=== PATIENT | male | born 1980 | race Caucasian/White ===

== ENCOUNTER 2021-05-07 14:15 | Emergency (ER) | payer MEDICAID ==
[~2021-05-07] VITALS: Ht 188 cm; Wt 97.5 kg
[2021-05-07 14:23] VITALS: BP 156/101
--- NOTE | 2021-05-07 14:54 | NUR ---
xray at bedside
--- NOTE | 2021-05-07 15:00 | NUR ---
DR ROY EXAMINING PT
[2021-05-07] MEDS ORDERED: LIDOCAINE 2% 1000 MG/50 ML VIAL INJ ONE ×2 (15:16→15:20)
[2021-05-07] MEDS ORDERED: KETOROLAC 30 MG/ML VIAL IM ONE (15:20)
--- NOTE | 2021-05-07 15:46 | NUR ---
PT BIB [facility] [facility] C/O LEFT LEG ABSCESS AND RIGHT SHOULDER PAIN. PENDING DC FOR PREBOOK.
[2021-05-07] MEDS ORDERED: CEPH-588 PO (15:48)
[2021-05-07] MEDS ORDERED: SULF-59 PO (15:48)
[2021-05-07] MEDS ORDERED: BACTO TP (15:48)
[2021-05-07 16:41] VITALS: BP 128/80
--- NOTE | 2021-05-07 16:42 | NUR ---
Patient discharged with v/s stable. Written and verbal after care instructions given and explained. Patient verbalized understanding. Police with in custody. All questions addressed prior to discharge. Advised to follow up with PMD.
== END 2021-05-07 16:42 ==
LOC: MED 14:15
DX: S43.081A Other subluxation of right shoulder joint, initial encounter (principal); X58.XXXA Exposure to other specified factors, initial encounter; Y93.89 Activity, other specified; Y92.89 Other specified places as the place of occurrence of the external cause; Y99.8 Other external cause status
CPT/HCPCS: 23650; 73020; 73030; 90471; 90715; 96372; 99284; J1885; J2001; Q0092